=== PATIENT | male | born 1990 | race Caucasian/White ===

== ENCOUNTER 2020-11-19 10:14 | Emergency (ER) | payer SELFPAY ==
[~2020-11-19] VITALS: Ht 177.8 cm; Wt 80.0 kg
[2020-11-19] MEDS ORDERED: ACETAMINOPHEN 325MG TABLET PO ONE (10:30)
[2020-11-19] MEDS ORDERED: SODIUM CHLORIDE 0.9% 1,000 ML IV ONE (10:30)
[2020-11-19] MEDS ORDERED: LEVETIRACETAM 1000MG PREMIX 100 ML IV ONE (10:30)
[2020-11-19 11:02] LABS: BASOPHILS % 0.5 % (0.0-2.0); EOSINOPHILS % 0.3 % (0.0-5.0); HEMATOCRIT. 47.4 % (42.0-52.0); HEMOGLOBIN. 15.4 g/dL (14.0-18.0); LYMPHOCYTES % 14.9 % (20.0-50.0); MEAN CORPUSCULAR HEMOGLOBIN 30.3 pg (28.0-32.0); MEAN CORPUSCULAR VOLUME 93.5 fL (80.0-94.0); MEAN PLATELET VOLUME 8.2 fl (7.4-10.4); MONOCYTES % 8.5 % (2.0-8.0); NEUTROPHILS % 75.8 % (40.0-76.0); PLATELET 280 x1000/uL (130-400); RED BLOOD CELL COUNT 5.07 mill/uL (4.7-6.1); RED CELL DISTRIBUTION WIDTH 13.3 % (11.6-14.6)
[2020-11-19 11:08] LABS: CHLORIDE 109 mEq/L (98-107)
[2020-11-19 11:14] LABS: ETHANOL BLOOD < 10 mg/dL
[2020-11-19 11:23] VITALS: BP 133/81
[2020-11-19] MEDS ORDERED: POTASSIUM CHLORIDE 20MEQ TABLET SR PO ONE (11:30)
== END 2020-11-19 11:42 | disposition left against medical advice (07) ==
LOC: ER 10:30
DX: G40.909 Epilepsy, unspecified, not intractable, without status epilepticus (principal); M25.512 Pain in left shoulder; R00.0 Tachycardia, unspecified; E87.8 Other disorders of electrolyte and fluid balance, not elsewhere classified; E87.2 Acidosis; R03.0 Elevated blood-pressure reading, without diagnosis of hypertension; H11.433 Conjunctival hyperemia, bilateral; F12.10 Cannabis abuse, uncomplicated; D72.829 Elevated white blood cell count, unspecified
CPT/HCPCS: 36415; 71045; 73030; 80053; 80320; 84484; 85025; 93005; 96365; 99285; J1953; J7030; G0480